=== PATIENT | male | born 1945 | race Caucasian/White ===

== ENCOUNTER → 2018-11-29 11:32 | Outpatient (CLI) | payer MEDICARE, SELFPAY ==
[2018-11-29 12:13] LABS: Add Manual Diff / Slide Review NO; Basophils Absolute Auto 100 /uL (0-100); Basophils Percent Auto 0.8 % (0-2); Eosinophils Absolute Auto 400 /uL (0-450); Eosinophils Percent Auto 6.8 % (2-4); Hematocrit 47.5 % (41-53); Hemoglobin 16.1 g/dL (13.5-17.5); Lymphocytes Absolute Auto 1700 /uL (1100-4500); Mean Corpuscular HGB Conc 33.8 % (30-36); Mean Corpuscular Hemoglobin 32.2 PG (26-34); Mean Corpuscular Volume 95.4 fL (80-100); Monocytes Absolute Auto 500 /uL (0-900); Monocytes Percent Auto 7.4 % (3-14); Neutrophils Absolute Auto 3800 /uL (1500-7000); Platelet Count 313 X10^3/uL (150-400); Red Blood Cell Count 4.98 X10^6/uL (4.5-5.9); Red Cell Distribution Width 13.1 % (11.6-14.8); White Blood Cell Count 6.5 X10^3/uL (4.5-11.0)
[2018-11-29 12:43] LABS: Cholesterol 244 mg/dL (140-199); HDL Cholesterol 71 mg/dL (40-60); LDL Cholesterol Calculated 147 mg/dL (<100); Triglycerides 129 mg/dL (35-150)
[2018-11-29 15:45] LABS: Vitamin D 25 Hydroxy (D3) 30.3 ng/mL (30.0-100.0)
[2018-11-30 13:57] LABS: Rubeola Measles IgG > 300.00 AU/mL (< 25.00)
== END ==
PROVIDERS: PCP Student in an Organized Health Care Education/Training Program; Visit Provider Student in an Organized Health Care Education/Training Program
DX: E55.9 Vitamin D deficiency, unspecified (principal); E78.2 Mixed hyperlipidemia; J45.909 Unspecified asthma, uncomplicated; Z11.59 Encounter for screening for other viral diseases
CPT/HCPCS: 36415; 80061; 82306; 85025; 86765

== ENCOUNTER → 2019-05-03 12:38 | Outpatient (CLI) | payer MEDICARE, SELFPAY ==
--- NOTE | 2019-05-03 13:11 | DI.CT.S_ITS ---
PROCEDURE: CT CHEST WO CON INDICATIONS: chronic bronchitis, former smoker TECHNIQUE: Noncontrast 2.0-2.5 mm thick sections acquired from the pulmonary apices to the posterior costophrenic angles. 7 mm thick coronal and sagittal MIP reformats were then acquired. A low radiation dose technique was utilized. COMPARISON: [facility], , CHEST 1 VIEW, 06/05/2017, 14:14. FINDINGS: Image quality: Diagnostic, given the low radiation dose technique. Lungs and pleura: Moderate to severe upper lobe emphysematous changes. Spiculated biapical pleural plaquing is present. Small focal mixed nodular and fibrotic changes are present at the medial left lung apex and extends to the left suprahilar region along the medial pleural surface. Mild underlying thickening of the medial pleural surface. Central apical left upper lobe lung nodule with spiculations to the superior pleura demonstrates a solid component measuring about 5 mm and measures overall about 9 mm on lung windows (series 3 image 63). No other lung nodules or suspicious masses. No acute airspace opacities. No pleural effusions. Minor subpleural irregularity anteriorly right middle lobe. Mediastinum: Heart size is normal. No pericardial effusion. There are mildly prominent aorticopulmonary and precarinal lymph nodes measuring 9 mm and 10 mm in short axis respectively. Smaller superior mediastinal lymph nodes are present. A no suspicious hilar adenopathy. Thoracic aorta and central pulmonary arteries are normal in size. Esophagus is normal in caliber. No hiatal hernia. Bones and chest wall: No suspicious bony lesions. No vertebral body compression fractures. No axillary or supraclavicular adenopathy by size criteria. Thyroid gland is normal. Abdomen: Visualized upper abdomen solid organs and bowel loops appear normal in the absence of contrast. Incidental not made of a few hepatic cysts. IMPRESSION: 1. 9 mm part solid lung nodule in the left upper lobe with a 5 mm solid component. This is probably benign nodular scarring but continued attention to this area is recommended. 2. Moderate to severe emphysema. 3. Biapical pleural irregularity and left apical medial fibrotic changes. 4. Mild mediastinal adenopathy. This is nonspecific and can be seen in setting of emphysema. LUNG-RADS 3; followup chest CT in 6 months. Dictated by: Lamar Elizalde M.D. on 05/03/2019 at 12:42 Approved by: Lamar Elizalde M.D. on 05/03/2019 at 12:56
== END ==
PROVIDERS: PCP Student in an Organized Health Care Education/Training Program; Visit Provider Student in an Organized Health Care Education/Training Program
DX: J42 Unspecified chronic bronchitis (principal); J43.9 Emphysema, unspecified; R91.1 Solitary pulmonary nodule; R59.0 Localized enlarged lymph nodes; Z87.891 Personal history of nicotine dependence
CPT/HCPCS: 71250

== ENCOUNTER → 2019-11-16 13:01 | Outpatient (CLI) | payer MEDICARE, SELFPAY ==
--- NOTE | 2019-11-16 13:45 | DI.CT.S_ITS ---
PROCEDURE: CT CHEST WO CON INDICATIONS: Spiculated lung nodule in left upper lung TECHNIQUE: Noncontrast 5 mm thick sections acquired from the pulmonary apices to the posterior costophrenic angles. 1 mm lung window, 5 mm thick coronal and sagittal and 7 mm axial MIP reformats were then acquired. For radiation dose reduction, the following was used: automated exposure control, adjustment of mA and/or kV according to patient size. COMPARISON: [facility], CT, CT CHEST WO [facility], 05/03/2019, 12:54. FINDINGS: Image quality: Excellent. Lungs and pleura: Spiculated central left apical lung nodule measuring 9 mm is stable in size and morphology. Pleural thickening in the left lung medial with associated bronchiectasis is also stable in morphology. Findings are superimposed on moderate to severe emphysematous changes without bullous formation or pneumothorax. Biapical pleural plaquing is present. No acute air space opacities. No pleural effusions or pneumothorax. Central and peripheral airways are patent and normal in caliber. Mediastinum: Heart size is normal. No pericardial effusion. Numerous prevascular and precarinal lymph nodes appear stable in size and number. No mediastinal adenopathy by size criteria. Thoracic aorta and central pulmonary arteries are normal in size. Esophagus is normal in caliber. No hiatal hernia. Bones and chest wall: No suspicious bony lesions. No vertebral body compression fractures. No axillary or supraclavicular adenopathy by size criteria. Thyroid gland is normal. Abdomen: Visualized upper abdominal organs demonstrate lobular liver morphology with a few cysts present as before. Upper abdomen is otherwise normal. IMPRESSION: 1. Stable spiculated left apical lung nodule with adjacent medial fibrosis. Continued screening with low-dose chest CT on an annual basis is recommended. 2. Stable mediastinal lymph nodes. 3. Moderate to severe emphysematous changes. Dictated by: Lamar Elizalde M.D. on 11/16/2019 at 15:48 Approved by: Lamar Elizalde M.D. on 11/16/2019 at 16:02
== END ==
PROVIDERS: PCP Student in an Organized Health Care Education/Training Program; Visit Provider Student in an Organized Health Care Education/Training Program
DX: R91.1 Solitary pulmonary nodule (principal); J84.10 Pulmonary fibrosis, unspecified
CPT/HCPCS: 71250

== ENCOUNTER → 2020-11-21 16:12 | Outpatient (CLI) | payer MEDICARE, SELFPAY ==
[2020-11-21] MEDS: COVID-19 VACC #1, MRNA(MOD) 100 MCG/0.5 ML VIAL IM (16:21)
== END ==
PROVIDERS: PCP Student in an Organized Health Care Education/Training Program; Visit Provider Internal Medicine
DX: Z23 Encounter for immunization (principal)
CPT/HCPCS: 0011A; 91301

== ENCOUNTER → 2020-12-18 15:23 | Outpatient (CLI) | payer MEDICARE, SELFPAY ==
[2020-12-18] MEDS: COVID-19 VACC #2, MRNA(MOD) 100 MCG/0.5 ML VIAL IM (15:33)
== END ==
PROVIDERS: PCP Student in an Organized Health Care Education/Training Program; Visit Provider Internal Medicine
DX: Z23 Encounter for immunization (principal)
CPT/HCPCS: 0012A; 91301

== ENCOUNTER → 2021-04-14 16:05 | Outpatient (CLI) | payer MEDICARE, SELFPAY ==
--- NOTE | 2021-04-14 16:07 | DI.RAD.S_ITS ---
PROCEDURE: XR ELBOW LT MIN 3V INDICATIONS: fall, L elbow pain TECHNIQUE: 4 views of the elbow were acquired. COMPARISON: [facility], CR, XR FOREARM LT 2V, 04/14/2021, 16:15. FINDINGS: Bones: Nondisplaced radial neck fracture. No dislocations. No suspicious bony lesions. Soft tissues: No significant elbow joint effusion. No suspicious soft tissue calcifications. IMPRESSION: Radial neck fracture. Dictated by: Jayme Lundberg M.D. on 04/14/2021 at 16:46 Approved by: Jayme Lundberg M.D. on 04/14/2021 at 16:47
--- NOTE | 2021-04-14 16:07 | DI.RAD.S_ITS ---
PROCEDURE: XR FOREARM LT 2V INDICATIONS: fall, L elbow pain TECHNIQUE: 2 views of the forearm were acquired. COMPARISON: [facility], CR, XR ELBOW LT MIN 3V, 04/14/2021, 16:15. FINDINGS: Bones: Radial neck fracture. No significant displacement. No shaft fracture. No dislocations. No suspicious bony lesions. Soft tissues: No suspicious soft tissue calcifications or masses. IMPRESSION: Radial neck fracture. Dictated by: Jayme Lundberg M.D. on 04/14/2021 at 16:44 Approved by: Jayme Lundberg M.D. on 04/14/2021 at 16:46
== END ==
PROVIDERS: PCP Student in an Organized Health Care Education/Training Program; Referring Provider Physician Assistant; Visit Provider Physician Assistant
DX: M25.522 Pain in left elbow (principal); S52.132A Displaced fracture of neck of left radius, initial encounter for closed fracture; W19.XXXA Unspecified fall, initial encounter
CPT/HCPCS: 73080; 73090

== ENCOUNTER 2021-09-15 14:00 | Outpatient (RCR) | payer MEDICARE, SELFPAY | END 2021-09-15 15:19 | LOC: PUL 14:00 | PROVIDERS: PCP Student in an Organized Health Care Education/Training Program; Referring Provider Student in an Organized Health Care Education/Training Program; Visit Provider Student in an Organized Health Care Education/Training Program | DX: J44.9 Chronic obstructive pulmonary disease, unspecified (principal) | CPT/HCPCS: G0424 ==

== ENCOUNTER → 2022-08-24 13:43 | Outpatient (CLI) | payer MEDICARE, SELFPAY ==
--- NOTE | 2022-08-24 | DI.CT.S_ITS ---
PROCEDURE: CT CHEST WO CON INDICATIONS: Solitary pulmonary nodule TECHNIQUE: Noncontrast 2.0-2.5 mm thick sections acquired from the pulmonary apices to the posterior costophrenic angles. 7 mm thick axial MIP and 5 mm coronal and sagittal reformats were then acquired. A low radiation dose technique was utilized. COMPARISON: [facility], CT, CT CHEST WO CON, 11/16/2019, 13:12. FINDINGS: Image quality: Diagnostic, given the low radiation dose technique. Lungs and pleura: There is severe centrilobular emphysema. Apical scarring is redemonstrated at the left upper lobe. Small spiculated nodule associated with the scarring is unchanged from the study dated November 16, 2019. No new pulmonary nodules. No acute airspace opacities. No pleural effusion or pneumothorax. Mediastinum: Heart size is normal. No pericardial effusion. No mediastinal adenopathy by size criteria. Thoracic aorta and central pulmonary arteries are normal in size. Scattered atheromatous calcifications are present within the aortic arch. Esophagus is normal in caliber. No hiatal hernia. Bones and chest wall: No suspicious bony lesions. No vertebral body compression fractures. No axillary or supraclavicular adenopathy by size criteria. Thyroid gland is unremarkable. Abdomen: Visualized upper abdomen solid organs and bowel loops appear normal in the absence of contrast. IMPRESSION: 1. No new pulmonary nodules or suspicious pulmonary lesions. Scarring at the left apex is unchanged from November 16, 2019. 2. Severe pulmonary emphysema redemonstrated. Fleischner Society criteria for SOLID lung nodule followup. Nodule size (mm)Low-risk patientHigh-risk patient<6 (single or multiple)No routine followup.Optional CT at 12 months. 6-8 (single or multiple)CT at 6-12 months, then optional CT at 18-24 mo.CT at 6-12 months, then CT at 18-24 months. >8 (single)CT at 3 months, PET-CT, or biopsy. Same as for low-risk pts. >8 (multiple)CT at 3-6 months, then optional CT at 18-24 mo.CT at 3-6 months, then CT at 18-24 months. Fleischner Society criteria for SUB-SOLID lung nodule followup. Solitary pure ground-glass nodules<6 mm (ground glass or part solid)No followup needed. 6 mm or larger (ground glass)CT at 6-12 months to confirm persistence, then CT every 2 years until 5 years.6 mm or larger (part solid)CT at 3-6 months to confirm persistence, then annual CT until 5 years if unchanged and solid component remains <6 mm. Multiple sub-solid nodules<6 mmCT at 3-6 months, then CT consider at 2 & 4 years for high risk patients. [address] at 3-6 months. Subsequent management based on most suspicious lesions. Recommendations do not apply to lung cancer screening, patients with immunosuppression, or patients with known primary cancer. Dictated by: Caprice Qureshi M.D. on 08/24/2022 at 16:15 Approved by: Caprice Qureshi M.D. on 08/24/2022 at 16:20
== END ==
PROVIDERS: PCP Student in an Organized Health Care Education/Training Program; Referring Provider Student in an Organized Health Care Education/Training Program; Visit Provider Student in an Organized Health Care Education/Training Program
DX: R91.1 Solitary pulmonary nodule (principal); J43.2 Centrilobular emphysema
CPT/HCPCS: 71250

== ENCOUNTER 2022-09-15 05:10 | Emergency (ER) | payer MEDICARE, SELFPAY ==
[2022-09-15 05:15] VITALS: BP 151/67; PULSE 85; RESP 20; TEMP 37.8; O2SAT 97; BMI 23.7
--- NOTE | 2022-09-15 05:24 | ED.SOB ---
HPI - SOB/Dyspnea General Chief Complaint: Shortness of Breath/Dyspnea Stated Complaint: cant breath Time Seen by Provider: 09/15/22 05:17 History of Present Illness HPI Narrative: 76-year-old male former smoker with history of COPD presents with his daughter and a chief complaint of a few days of increasing shortness of breath, cough, fever and chills. The family he is had multiple viral illnesses including RSV and parainfluenza. He had recently been seen by his primary care provider and put on a Z-Aidan and a short course of prednisone and thinks he got a bit better but symptoms have been worsening again over the past few days. Exertion makes him more short of breath, deep breath makes him more short of breath and forces him to cough. He occasionally brings up off colored sputum. He has no headache or blurred vision and denies any runny nose, sore throat. He has had no nausea, vomiting or diarrhea Related Data Home Medications Medication Instructions Recorded Confirmed budesonide 0.25 mg/2 mL suspension 0.6 mg irrigation Q DAY ##0 11/29/18 12/25/21 for nebulization famotidine 20 mg tablet 20 mg PO DAILY 05/13/21 12/25/21 (Zantac-360 (famotidine)) Previous Rx's Medication Instructions Recorded fluticasone propionate 115 2 puff inhalation BID #36 grams 12/25/21 mcg-salmeterol 21 mcg/actuation HFA inhaler (Advair HFA) albuterol sulfate 90 mcg/actuation 2 puff inhalation QID PRN chronic 01/29/22 aerosol inhaler (Ventolin HFA) bronchitis #18 grams alprazolam 0.5 mg tablet 0.25 - 0.5 mg PO DAILY PRN anxiety 08/05/22 #10 tabs azithromycin 250 mg tablet See Rx Instructions PO .COMPLEX #6 08/17/22 tabs benzonatate 200 mg capsule 200 mg PO BID PRN cough #20 caps 09/15/22 oseltamivir 75 mg capsule (Tamiflu) 75 mg PO BID 5 days #10 caps 09/15/22 prednisone 10 mg tablet See Rx Instructions .Route 09/15/22 .COMPLEX #30 tabs Allergies Allergy/AdvReac Type Severity Reaction Status Date / Time Penicillins Allergy Severe HIVES, Unverified 12/25/21 15:14 TROUBLE BREATHING Review of Systems Review of Systems Narrative: GENERAL: See HPI HEENT: Denies sinus pain, ear pain, sore throat, difficulty swallowing, dizziness. RESPIRATORY: See HPI CARDIOVASCULAR: Denies chest pain, palpitations, orthopnea, edema, GASTROINTESTINAL: Denies nausea, vomiting, abdominal pain, diarrhea, constipation, melena. : Denies dysuria, frequency, incontinence, hematuria, urinary retention. MUSCULOSKELETAL: denies weakness, joint pain, or bony pain SKIN: Denies rash, skin lesions, or other NEUROLOGIC: Denies weakness, headache, numbness, change in speech, confusion, seizures, incoordination. PSYCHIATRIC: No concerning psychosocial issues. 12 point review of systems is negative except for those stated above Patient History Medical History Benign non-nodular prostatic hyperplasia with lower urinary tract symptoms (10/11/15) Chicken pox Chronic bronchitis (~1976) Colon polyps Dermatitis Elevated PSA (~1994) History of nasal polyp (08/17/17) Hyperlipidemia Moderate persistent asthma without complication (10/11/15) Mumps Rubella Surgical History Anesthesia History of appendectomy (~1965) History of knee surgery (~2007) History of sinus surgery (~2007) History of tonsillectomy (~1951) Hx of inguinal hernia surgery (~03/31/12) S/P TURP (~2015) Family History Father No problems noted. Mother Heart disease Brother Heart disease Stroke Sister Cancer Mental health problem Grandmother No problems noted. Grandfather No problems noted. Grandmother No problems noted. Social History Smoking Status: Former smoker Smoking Status: Former smoker Exam Narrative Exam Narrative: GENERAL: [76] year old patient appears stated age. Well-developed patient, in mild distress. HEAD: Atraumatic. Normocephalic. EYES: Pupils equal round and reactive. Extraocular motions intact. No scleral icterus. No injection or drainage. ENT: Nose without bleeding, purulent drainage. Throat without erythema, tonsillar hypertrophy or exudate. Airway patent. NECK: Trachea midline. Non tender CARDIOVASCULAR: Regular rate and rhythm without murmurs, gallops, or rubs. RESPIRATORY: Decreased breath sounds throughout prolonged expiratory phase and faint and expiratory wheeze, perhaps some faint crackles, deep breath illicits cough GASTROINTESTINAL: Abdomen soft, non-tender, nondistended. EXTREMITIES: No edema or joint tenderness. BACK: Nontender without deformity or crepitance. No flank tenderness. NEURO: AOx3. SKIN: No rash or erythema of visible areas Initial Vital Signs Initial Vital Signs: Vital Signs Temperature 100.1 F H 09/15/22 05:15 Pulse Rate 85 09/15/22 05:15 Respiratory Rate 20 09/15/22 05:15 Blood Pressure 151/67 H 09/15/22 05:15 Pulse Oximetry 97 09/15/22 05:15 Oxygen Delivery Method 09/15/22 05:15 Course Orders Ordered: Discontinued Medications Albuterol/Ipratropium (Albuterol/Ipratropium 3 Ml Ampul) 3 ml INH NOW ONE Stop: 09/15/22 05:27 Last Admin: 09/15/22 05:34 Dose: 3 ml Documented By: PILI Sodium Chloride (Normal Saline 0.9%) 500 mls @ 1,000 mls/hr IV BOLUS ONE Stop: 09/15/22 05:53 Last Infusion: 09/15/22 06:57 Dose: 0 mls/hr Documented By: Admin: 09/15/22 06:00 Dose: 1,000 mls/hr Documented By: JULIETH Methylprednisolone (Methylprednisolone 125 Mg/2 Ml Vial) 125 mg IV NOW ONE Stop: 09/15/22 05:25 Last Admin: 09/15/22 05:41 Dose: 125 mg Documented By: TONY Vital Signs Vital signs: Vital Signs - 8 hr 09/15/22 05:15 Temperature 100.1 F H Pulse Rate 85 Respiratory Rate 20 Blood Pressure 151/67 H Pulse Oximetry 97 Oxygen Delivery Method Room Air MDM - SOB/Dyspnea Lab Data Result diagrams: 09/15/22 05:36 09/15/22 05:36 Labs: Lab Results 09/15/22 09/15/22 09/15/22 Range/Units 05:34 05:36 05:36 WBC 7.9 (4.5-11.0) X10^3/uL RBC 4.52 (4.5-5.9) X10^6/uL Hgb 14.4 (13.5-17.5) g/dL Hct 42.3 (41-53) % MCV 93.6 (80-100) fL MCH 31.8 (26-34) PG MCHC 34.0 (30-36) % RDW 13.4 (11.6-14.8) % Plt Count 316 (150-400) X10^3/uL Neut % (Auto) 80.7 H (50-75) % Lymph % (Auto) 7.3 L (25-40) % [place] % (Auto) 8.3 (3-14) % Eos % (Auto) 2.6 (2-4) % Baso % (Auto) 1.1 (0-2) % Neut # (Auto) 6300 (6317-2409) /uL Lymph # (Auto) 600 L (9079-8340) /uL [place] # (Auto) 700 (0-900) /uL Eos # (Auto) 200 (0-450) /uL Baso # (Auto) 100 (0-100) /uL Sodium (137-145) mmol/L Potassium (3.4-5.1) mmol/L Chloride (98-107) mmol/L Carbon Dioxide (22-32) mmol/L BUN (9-20) mg/dL Creatinine (0.66-1.25) mg/dL Estimated GFR (>60) mL/min BUN/Creatinine Ratio (6-22) Glucose (80-110) mg/dL Calcium (8.4-10.2) mg/dL Total Bilirubin (0.2-1.3) mg/dL AST (17-59) IU/L ALT (<50) IU/L Alkaline Phosphatase (38-126) U/L NT-Pro-B Natriuret Pep (<450) pg/mL Total Protein (6.3-8.2) g/dL Albumin (3.5-5.0) g/dL Globulin (1.7-4.1) g/dL Albumin/Globulin Ratio (1.0-2.8) Procalcitonin 0.14 (<0.5) ng/mL SARS-CoV-2 (PCR) Negative (Negative) Influenza A (RT-PCR) Flu a positive H (NEGATIVE) Influenza B (RT-PCR) Flu b negative (NEGATIVE) RSV (PCR) Negative (Negative) 09/15/22 Range/Units 05:36 WBC (4.5-11.0) X10^3/uL RBC (4.5-5.9) X10^6/uL Hgb (13.5-17.5) g/dL Hct (41-53) % MCV (80-100) fL MCH (26-34) PG MCHC (30-36) % RDW (11.6-14.8) % Plt Count (150-400) X10^3/uL Neut % (Auto) (50-75) % Lymph % (Auto) (25-40) % [place] % (Auto) (3-14) % Eos % (Auto) (2-4) % Baso % (Auto) (0-2) % Neut # (Auto) (6512-3644) /uL Lymph # (Auto) (2624-6693) /uL [place] # (Auto) (0-900) /uL Eos # (Auto) (0-450) /uL Baso # (Auto) (0-100) /uL Sodium 136 L (137-145) mmol/L Potassium 5.0 (3.4-5.1) mmol/L Chloride 101 (98-107) mmol/L Carbon Dioxide 27 (22-32) mmol/L BUN 13 (9-20) mg/dL Creatinine 0.80 (0.66-1.25) mg/dL Estimated GFR > 60 (>60) mL/min BUN/Creatinine Ratio 16.3 (6-22) Glucose 109 (80-110) mg/dL Calcium 9.2 (8.4-10.2) mg/dL Total Bilirubin 0.6 (0.2-1.3) mg/dL AST 34 (17-59) IU/L ALT 27 (<50) IU/L Alkaline Phosphatase 57 (38-126) U/L NT-Pro-B Natriuret Pep 282 (<450) pg/mL Total Protein 8.2 (6.3-8.2) g/dL Albumin 4.4 (3.5-5.0) g/dL Globulin 3.8 (1.7-4.1) g/dL Albumin/Globulin Ratio 1.2 (1.0-2.8) Procalcitonin (<0.5) ng/mL SARS-CoV-2 (PCR) (Negative) Influenza A (RT-PCR) (NEGATIVE) Influenza B (RT-PCR) (NEGATIVE) RSV (PCR) (Negative) Imaging Data Chest x-ray: Radiologist's Impression: NAP Discharge Plan Departure Patient Disposition: Home Clinical Impression: Influenza A Instructions: DI for Influenza -- Adult Activity Restrictions/Additional Instructions: *You have been diagnosed with [influenza a] *What to do: *Please continue to take your regular medications as directed. [x ] New medication prescriptions sent to your pharmacy: [ [facility]] [ ] New medication written as a paper prescription [ ] No new medications given *Please follow up with your primary care provider in 2-3 days, call for an appointment. Let them know you were seen in the Emergency Department and that we ask that you be seen in follow up. We will electronically transmit a record of today's note if your PCP is in our system *If you do not have a primary care provider please contact the [facility] Resource line at [phone]. They will ask some questions about your medical history and help get you set up with a doctor in the community. *Return to Emergency Department if you should have any new, worsening or concerning symptoms, such as [fever greater than 101 F, shaking chills, worsening pain, persistent vomiting or other bothersome symptoms] Prescriptions: New prednisone 10 mg tablet See Rx Instructions .ROUTE .COMPLEX Qty: 30 0RF Rx Instructions: Day 1,2,3: 40mg PO Daily Day 4,5,6: 30mg PO Daily Day 7,8,9: 20mg PO Daily Day 10,11,12: 10mg PO Daily #30 oseltamivir [Tamiflu] 75 mg capsule 75 mg PO BID 5 Days Qty: 10 0RF benzonatate 200 mg capsule 200 mg PO BID PRN (Reason: cough) Qty: 20 0RF No Action Ventolin HFA 90 mcg/actuation HFA aerosol inhaler 2 puff INHALATION QID PRN (Reason: chronic bronchitis) Qty: 18 11RF alprazolam 0.5 mg tablet 0.25 - 0.5 mg PO DAILY PRN (Reason: anxiety) Qty: 10 0RF azithromycin 250 mg tablet See Rx Instructions PO .COMPLEX Qty: 6 0RF Rx Instructions: For 250 mg dose pack: take 500 mg today (day 1), then 250 mg for 4 days (days 2-5) PO famotidine [Zantac-360 (famotidine)] 20 mg tablet 20 mg PO DAILY budesonide 0.25 mg/2 mL suspension for nebulization 0.6 mg IRR Q DAY Qty: 0 Label Comments: Sinus rinse Advair HFA 115-21 mcg/actuation HFA aerosol inhaler 2 puff INHALATION BID Qty: 36 3RF Referrals: Juanito Tyler MD [Primary Care Provider] - Visit Report Forms: Patient Portal/API
--- NOTE | 2022-09-15 05:25 | DI.RAD.S_ITS ---
PROCEDURE: XR CHEST 2V INDICATIONS: SOB TECHNIQUE: 2 views of the chest were acquired. COMPARISON: [facility], CT, CT CHEST WO CON, 08/24/2022, 13:48. [facility], CR, CHEST 1 VIEW, 06/05/2017, 14:14. FINDINGS: Surgical changes and devices: None. Lungs and pleura: Hyperinflation suggesting COPD. Lungs are clear. No pleural effusions or pneumothorax. Mediastinum: Mediastinal contours are normal. Heart size is normal. Bones and chest wall: No suspicious bony abnormalities. Soft tissues appear unremarkable. IMPRESSION: COPD. No acute cardiopulmonary disease. No significant discrepancy with the maintenance supervisor 2nd shift radiology preliminary report. Dictated by: Rosa Boyer M.D. on 09/15/2022 at 8:38 Approved by: Rosa Boyer M.D. on 09/15/2022 at 8:39
[2022-09-15] MEDS: ALBUTEROL/IPRATROPIUM 3 ML AMPUL INH (05:34)
[2022-09-15] MEDS: methylPREDNISolone 125 MG/2 ML VIAL IV (05:41)
[2022-09-15 05:52] LABS: Add Manual Diff / Slide Review NO; Basophils Absolute Auto 100 /uL (0-100); Basophils Percent Auto 1.1 % (0-2); Eosinophils Absolute Auto 200 /uL (0-450); Eosinophils Percent Auto 2.6 % (2-4); Hematocrit 42.3 % (41-53); Hemoglobin 14.4 g/dL (13.5-17.5); Lymphocytes Absolute Auto 600 /uL (1100-4500); Lymphocytes Percent Auto 7.3 % (25-40); Mean Corpuscular Hemoglobin 31.8 PG (26-34); Mean Corpuscular Volume 93.6 fL (80-100); Monocytes Absolute Auto 700 /uL (0-900); Monocytes Percent Auto 8.3 % (3-14); Neutrophils Absolute Auto 6300 /uL (1500-7000); Neutrophils Percent Auto 80.7 % (50-75); Platelet Count 316 X10^3/uL (150-400); Red Blood Cell Count 4.52 X10^6/uL (4.5-5.9); Red Cell Distribution Width 13.4 % (11.6-14.8); White Blood Cell Count 7.9 X10^3/uL (4.5-11.0)
[2022-09-15] MEDS: SODIUM CHLORIDE 0.9% 500 ML 1000 ML IV (06:00)
[2022-09-15 06:01] LABS: Alanine Aminotransferase 27 IU/L (<50); Albumin 4.4 g/dL (3.5-5.0); Albumin Globulin Ratio 1.2 (1.0-2.8); Alkaline Phosphatase 57 U/L (38-126); Aspartate Aminotransferase 34 IU/L (17-59); BUN Creatinine Ratio 16.3 (6-22); Bilirubin Total 0.6 mg/dL (0.2-1.3); Blood Urea Nitrogen 13 mg/dL (9-20); Calcium 9.2 mg/dL (8.4-10.2); Carbon Dioxide 27 mmol/L (22-32); Chloride 101 mmol/L (98-107); Estimated Glomerular Filt Rate > 60 mL/min (>60); Globulin 3.8 g/dL (1.7-4.1); Glucose 109 mg/dL (80-110); Sodium 136 mmol/L (137-145); Total Protein 8.2 g/dL (6.3-8.2)
[2022-09-15 06:10] LABS: NT-proBNP (BNP-Adult 18+) 282 pg/mL (<450)
[2022-09-15 06:19] LABS: Procalcitonin 0.14 ng/mL (<0.5)
[2022-09-15 06:32] LABS: HEMOLYSIS 101 (0-50)
[2022-09-15 06:37] LABS: Influenza A - CEPHEID Flu A POSITIVE (NEGATIVE); Influenza B - CEPHEID Flu B NEGATIVE (NEGATIVE); Respiratory Syncytial Virus Negative (Negative)
[2022-09-15 06:42] LABS: COVID-19 CEPHEID 4-PLEX PCR Negative (Negative)
[2022-09-15 08:17] VITALS: BP 137/65; PULSE 82; RESP 19; O2SAT 95
== END 2022-09-15 08:17 | disposition home or self-care (01) ==
PROVIDERS: Emergency Provider Emergency Medicine; PCP Student in an Organized Health Care Education/Training Program
DX: J10.1 Influenza due to other identified influenza virus with other respiratory manifestations (principal); Z20.822 Contact with and (suspected) exposure to COVID-19
CPT/HCPCS: 0241U; 36415; 71046; 80053; 83880; 84145; 85025; 96361; 96374; 99284; J2930

== ENCOUNTER → 2023-07-15 12:06 | Outpatient (CLI) | payer MEDICARE, SELFPAY ==
[2023-07-15 13:17] LABS: Alanine Aminotransferase 26 IU/L (<50); Albumin 4.5 g/dL (3.5-5.0); Albumin Globulin Ratio 1.4 (1.0-2.8); Alkaline Phosphatase 58 U/L (38-126); Aspartate Aminotransferase 29 IU/L (17-59); Bilirubin Total 0.6 mg/dL (0.2-1.3); Blood Urea Nitrogen 16 mg/dL (9-20); Calcium 9.8 mg/dL (8.4-10.2); Carbon Dioxide 27 mmol/L (22-32); Chloride 101 mmol/L (98-107); Cholesterol 230 mg/dL (140-199); Estimated Glomerular Filt Rate > 60 mL/min (>60); Globulin 3.2 g/dL (1.7-4.1); Glucose 94 mg/dL (80-110); HDL Cholesterol 69 mg/dL (40-60); HEMOLYSIS < 15 (0-50); LDL Cholesterol Calculated 135 mg/dL (<100); Sodium 137 mmol/L (137-145); Total Protein 7.7 g/dL (6.3-8.2); Triglycerides 131 mg/dL (35-150)
== END ==
PROVIDERS: PCP Family Medicine; Referring Provider Family Medicine; Visit Provider Family Medicine
DX: E78.2 Mixed hyperlipidemia (principal); K21.9 Gastro-esophageal reflux disease without esophagitis
CPT/HCPCS: 36415; 80053; 80061

== ENCOUNTER → 2023-08-20 14:29 | Outpatient (CLI) | payer MEDICARE, SELFPAY ==
--- NOTE | 2023-08-20 14:31 | DI.CT.S_ITS ---
PROCEDURE: CT LUNG LOW DOSE SCREENING INDICATIONS: 1 year f/u TECHNIQUE: Noncontrast 2.0-2.5 mm thick sections acquired from the pulmonary apices to the posterior costophrenic angles. 7 mm thick axial MIP, and 5 mm coronal and sagittal reformats were then acquired. A low radiation dose technique was utilized. COMPARISON: [facility], CT, CT LOW DOSE LUNG CA SCREENING, 01/02/2021, 10:22. FINDINGS: Image quality: Diagnostic, given the low radiation dose technique. Lungs and pleura: Severe centrilobular emphysema is redemonstrated similar to the study dated January 02, 2021. Scarring is present within the bilateral apices, as before. Mediastinum: Heart size is normal. No pericardial effusion. No mediastinal adenopathy by size criteria. Thoracic aorta and central pulmonary arteries are normal in size. Scattered atheromatous calcifications are present within the aortic arch. Esophagus is normal in caliber. No hiatal hernia. Bones and chest wall: No suspicious bony lesions. No vertebral body compression fractures. No axillary or supraclavicular adenopathy by size criteria. Thyroid gland is unremarkable. Abdomen: Visualized upper abdomen solid organs and bowel loops appear normal in the absence of contrast. IMPRESSION: 1. Severe emphysematous change and apical scarring. No new pulmonary nodules or acute airspace opacities. LUNG-RADS 1; annual CT surveillance recommended in high-risk patients. Dictated by: Caprice Qureshi M.D. on 08/20/2023 at 16:06 Approved by: Caprice Qureshi M.D. on 08/20/2023 at 16:10
== END ==
PROVIDERS: PCP Family Medicine; Referring Provider Family Medicine; Visit Provider Family Medicine
DX: Z12.2 Encounter for screening for malignant neoplasm of respiratory organs (principal); Z87.891 Personal history of nicotine dependence; J43.9 Emphysema, unspecified; R91.1 Solitary pulmonary nodule; K21.9 Gastro-esophageal reflux disease without esophagitis; E78.2 Mixed hyperlipidemia
CPT/HCPCS: 71271

== ENCOUNTER → 2024-01-07 10:08 | Outpatient (CLI) | payer MEDICARE, SELFPAY ==
[2024-01-07 11:50] LABS: Alanine Aminotransferase 24 IU/L (<50); Albumin Globulin Ratio 1.3 (1.0-2.8); Alkaline Phosphatase 54 U/L (38-126); Aspartate Aminotransferase 25 IU/L (17-59); BUN Creatinine Ratio 12.4 (6-22); Bilirubin Total 0.5 mg/dL (0.2-1.3); Blood Urea Nitrogen 11 mg/dL (9-20); Calcium 9.4 mg/dL (8.4-10.2); Carbon Dioxide 27 mmol/L (22-32); Chloride 106 mmol/L (98-107); Cholesterol 172 mg/dL (140-199); Estimated Glomerular Filt Rate > 60 mL/min (>60); Glucose 84 mg/dL (80-110); HDL Cholesterol 65 mg/dL (40-60); HEMOLYSIS < 15 (0-50); LDL Cholesterol Calculated 86 mg/dL (<100); Sodium 138 mmol/L (137-145); Triglycerides 105 mg/dL (35-150)
[2024-01-07 12:15] LABS: Prostate Specific Antigen Scrn 2.23 ng/mL (0.1-4.0)
== END ==
PROVIDERS: PCP Family Medicine; Referring Provider Family Medicine; Visit Provider Family Medicine
DX: E78.2 Mixed hyperlipidemia (principal); Z12.5 Encounter for screening for malignant neoplasm of prostate; F41.8 Other specified anxiety disorders
CPT/HCPCS: 36415; 80053; 80061; G0103

== ENCOUNTER 2024-04-13 12:03 | Day surgery (SDC) | payer MEDICARE, SELFPAY ==
--- NOTE | 2024-04-13 | PATH_ITS ---
[facility] Accession Number: [id number] No. of containers..02 Tissue . 01 Material submitted: . PART A: colon - ASCENDING POLYP PART B: colon - DESCENDING POLYP . 01 Diagnosis: Part A: ASCENDING POLYP: Tubular adenoma. . Part B: DESCENDING POLYP: Tubular adenoma. [facility] 04/19/2024 1534 Local . 01 Electronically signed: . Douglas Bach MD, Pathologist NPI- [id number] . 01 Gross description: . A. Received in formalin with two patient identifiers and ascending polyp is a single vargas soft tissue fragment, 1.3 cm in greatest dimension. Submitted in A1. . B. Received in formalin with two patient identifiers and descending polyp, are two vargas soft tissue fragments, 0.2 to 0.3 cm in greatest dimension. Submitted in B1. ([id number]) /MRV 04/19/2024 1534 Local . 01 Pathologist provided ICD-10: D12.2, D12.4 . 01 CPT . 970485, [id number] Specimen Comment: A courtesy copy of this report has been sent to [phone] Performed at: [address] [address], [place], [place] [id number] MD Douglas Bach MD Phone: [phone]
[2024-04-13 12:30] VITALS: BP 144/84; PULSE 62; RESP 20; TEMP 37.2; O2SAT 98
[2024-04-13] MEDS: LACTATED RINGERS 1,000 ML 42 ML IV (12:43)
--- NOTE | 2024-04-13 13:02 | PM.HP.1 ---
History of Present Illness History of Present Illness Date Patient Seen: 04/13/24 Time Patient Seen: 13:02 Chief complaint: Screening Colonoscopy Narrative: Jaron is a 78-year-old man who is here for colonoscopy. His last was about 10 years ago and was normal. No family history of colon cancer. [facility] Medical History Near syncope Unintended weight loss Borderline hyperlipidemia History of colon polyps Medicare annual wellness visit, subsequent Encounter for well adult exam without abnormal findings Chronic sinusitis Preventative health care Insomnia Chronic bronchitis (~1976) Rubella Mumps Chicken pox Elevated PSA (~1994) Dermatitis Colon polyps Hyperlipidemia History of nasal polyp (08/17/17) Moderate persistent asthma without complication (10/11/15) Benign non-nodular prostatic hyperplasia with lower urinary tract symptoms (10/11/15) Surgical History Anesthesia S/P TURP (~2015) History of sinus surgery (~2007) History of knee surgery (~2007) History of appendectomy (~1965) History of tonsillectomy (~1951) Hx of inguinal hernia surgery (~03/31/12) Family History Father No problems noted. Mother Heart disease Brother Heart disease Stroke Sister Cancer Mental health problem Grandmother No problems noted. Grandfather No problems noted. Grandmother No problems noted. Social History Smoking Status: Former smoker Meds Home Medications and Allergies Home Medications Medication Instructions Recorded Confirmed Type alprazolam 0.25 mg tablet 0.25 - 0.5 mg (1 - 2 x 0.25 mg) PO 10/28/23 03/17/24 Rx DAILY PRN anxiety or insomnia #30 tabs albuterol sulfate 90 mcg/actuation 2 puff inhalation QID PRN chronic 01/04/24 04/13/24 Rx aerosol inhaler (Ventolin HFA) bronchitis #18 grams fluticasone propionate 115 2 puff inhalation BID #36 grams 01/04/24 04/13/24 Rx mcg-salmeterol 21 mcg/actuation HFA inhaler (Advair HFA) budesonide 0.25 mg/2 mL suspension 0.6 mg (4.8 mL) irrigation Q DAY 02/14/24 04/13/24 Rx for nebulization #180 mL Allergies Allergy/AdvReac Type Severity Reaction Status Date / Time Penicillins Allergy Severe HIVES, Verified 04/13/24 12:28 TROUBLE BREATHING Exam Vital Signs (past 8 hours): - 04/13/24 12:30 Temperature 98.9 F Pulse Rate 62 Respiratory Rate 20 Blood Pressure 144/84 H Pulse Oximetry 98 Oxygen Delivery Method Room Air Oxygen Delivery Method Room Air Const General: healthy appearing Resp Effort & Inspection: normal respiratory effort Assessment & Plan Assessment and plan (1) Colon cancer screening: Status: Acute Plan We reviewed the risks and benefits of colonoscopy for colon cancer screening and he would like to proceed.
--- NOTE | 2024-04-13 14:01 | PM.OP.COLON ---
Operative Date/Time/Diagnoses Date of procedure: 04/13/24 Time of procedure: 14:01 Pre-op diagnosis: Colon cancer screening Post-op diagnosis: same Procedure & Clinicians Study performed: Colonoscopy Same procedure as scheduled: Yes Surgeon: Bassam Deal Procedure Notes Procedure in detail: Surgeon: Bassam Deal MD Anesthesia: Eva Duran CRNA Procedure: The patient was brought to the endoscopy suite, placed in left lateral decubitus position. The patient was connected to monitoring devices. A time-out was performed. Sedation was administered. Once the patient was adequately sedated, a digital rectal exam was performed and was normal. The scope was then inserted and advanced to the cecum where the appendiceal orifice was identified and photographed. The scope was then slowly withdrawn over greater than 6 minutes. The mucosa was thoroughly inspected. There was a 7 mm polyp in the ascending colon removed with a cold snare. There was a 7 mm polyp in the descending colon removed with a cold snare. There was moderate diverticulosis greatest in the sigmoid colon. The scope was retroflexed in the rectum. No other abnormalities were seen. The scope was straightened and removed. The patient was awakened and brought to recovery. Scope withdrawal time: 10 minutes Sedation time: 20 minutes EBL: 2 mL Findings: 7 mm polyps in the ascending and descending colon and sigmoid colon diverticulosis Post-procedure Disposition: PACU
[2024-04-13 14:02] VITALS: BP 119/69; PULSE 73; RESP 14; TEMP 36.7; O2SAT 98
[2024-04-13 14:07] VITALS: BP 132/75; PULSE 73; RESP 22; O2SAT 98
[2024-04-13 14:16] VITALS: BP 130/72; PULSE 68; RESP 20; O2SAT 98
== END 2024-04-13 14:26 | disposition home or self-care (01) ==
PROVIDERS: PCP Family Medicine; Referring Provider Surgery; Visit Provider Surgery
PROC: 0DJD8ZZ Inspection of Lower Intestinal Tract, Via Natural or Artificial Opening Endoscopic (ICD-10-PCS; CPT 45378; principal; 2024-04-13 13:30)
DX: Z12.11 Encounter for screening for malignant neoplasm of colon (principal); K57.30 Diverticulosis of large intestine without perforation or abscess without bleeding; D12.2 Benign neoplasm of ascending colon; D12.4 Benign neoplasm of descending colon
CPT/HCPCS: 45385; J2704

== ENCOUNTER → 2024-04-24 15:36 | Outpatient (CLI) | payer MEDICARE, SELFPAY ==
--- NOTE | 2024-04-24 15:36 | DI.ECHO.S_ITS ---
[place] [facility]---------+ [facility] : : [address] : : [place] : : [id number] : : Phone: [phone] Echocardiogram Report + + :Name: DAGMAR MICHELLE Study Date: 04/24/2024 Height: 69 in : :[facility] ReadingLocation: Weight: 160 lb : : Gender: Male BSA: 1.9 m2 : :: 1945 Age: 78 yrs BP: 162/88 mmHg: :Reason For Study: NEAR SYNCOPE : :Ordering Physician: KEVIN, : :MELANIE Performed By: [place] : :Referring: MELANIE BROWN : + + Interpretation Summary Normal left ventricle size with ejection fraction 60-65%. No significant valvular abnormality. Comparison is made with the echocardiogram of 03/26/2015, no significant change. Procedure: A two-dimensional transthoracic echocardiogram with color flow and Doppler was performed. The study quality was technically adequate. Comparison is made with the echocardiogram of 03/26/2015. The patient was in sinus rhythm with heart rates between 57-71 bpm during the exam. Left Ventricle: The left ventricle is normal in size and wall thickness. The ejection fraction is estimated to be 60-65%. There are no focal wall motion abnormalities. Diastolic parameters suggest probable normal left ventricular diastolic function and normal filling pressures. Right Ventricle: The right ventricle is normal in size and function. Atria: The left atrial size is normal. Right atrial size is normal. The interatrial septum grossly appears intact with no obvious evidence for an atrial septal defect. Mitral Valve: The mitral valve is normal. There is no mitral valve stenosis. There is no mitral regurgitation noted. Aortic Valve: The aortic valve is grossly normal. There is no aortic valve stenosis. No aortic regurgitation is present. Tricuspid Valve: The tricuspid valve is normal. There is no tricuspid stenosis. No tricuspid regurgitation. Pulmonic Valve: The pulmonic valve is not well visualized. There is no pulmonic valvular stenosis. There is no pulmonic valvular regurgitation. Great Vessels: The aortic root is normal size. The ascending aorta could not be visualized. The IVC is of normal diameter and collapses greater than 50% with a sniff. This suggests a low right atrial pressure of 3 mm Hg. Pericardium/ Pleura There is no pericardial effusion. There is no pleural effusion. MMode/2D Measurements & Calculations LVIDd: 4.3 cm LVOT diam: 2.3 cm LVIDs: 2.9 cm Ao root diam: 3.7 cm FS: 33.1 % IVSd: 0.91 cm LVPWd: 0.98 cm LV meeks. diameter/BSA (cm/m^2): 2.3 LV sys. diameter/BSA (cm/m^2): 1.5 LA A2 area: 19.1 cm2 RA long axis: 4.6 cm LA A4 area: 17.7 cm2 RA area: 15.3 cm2 LA length (vol): 5.1 cm RA vol: 43.5 ml LA vol: 56.2 ml RA : 23.2 ml/m2 LA vol index: 29.9 ml/m2 IVC diam: 1.5 cm RVD1 (basal): 3.1 cm RVD2 (mid): 2.8 cm TAPSE: 2.7 cm Doppler Measurements & Calculations Ao V2 max: 147.9 cm/sec LVOT Max Morgan: 95.1 cm/sec Ao V2 mean: 87.0 cm/sec LV V1 max P.6 mmHg Ao max P.8 mmHg LV V1 VTI: 27.2 cm Ao mean P.6 mmHg ROSITA(I,D): 3.9 cm2 Ao V2 VTI: 28.5 cm ROSITA(V,D): 2.6 cm2 sev ratio: 0.95 ROSITA indexed to BSA (cm^2/m^2): 2.1 MV E max morgan: 72.5 cm/sec PA V2 max: 106.9 cm/sec MV A max morgan: 55.4 cm/sec PA V2 mean: 81.2 cm/sec MV E/A: 1.3 PA mean P.8 mmHg Med Peak E' Morgan: 9.5 cm/sec PA pr(Accel): 1.9 mmHg E/E' med: 7.6 Lat Peak E' Morgan: 8.7 cm/sec E/E' lat: 8.3 E/e' average: 8.0 MV dec time: 0.28 sec SV(LVOT): 110.9 ml Electronically signed by: Edwar Hernandez on Reading Physician:04/25/2024 04:06 PM
== END ==
PROVIDERS: PCP Family Medicine; Referring Provider Family Medicine; Visit Provider Family Medicine
DX: R55 Syncope and collapse (principal)
CPT/HCPCS: 93306

== ENCOUNTER → 2024-09-05 15:07 | Outpatient (CLI) | payer MEDICARE, SELFPAY ==
--- NOTE | 2024-09-05 15:08 | DI.CT.S_ITS ---
PROCEDURE: CT LUNG LOW DOSE SCREENING INDICATIONS: screening for lung cancer 1 year f/u TECHNIQUE: Noncontrast 2.0-2.5 mm thick sections acquired from the pulmonary apices to the posterior costophrenic angles. 7 mm thick axial MIP, and 5 mm coronal and sagittal reformats were then acquired. For radiation dose reduction, the following was used: automated exposure control, adjustment of mA and/or kV according to patient size. COMPARISON: [facility], CT, CT LUNG LOW DOSE SCREENING, 08/20/2023, 14:58. FINDINGS: Image quality: Diagnostic. Lower Neck: No enlarged lymph nodes. Thyroid: No thyroid nodules which require sonographic follow up, per consensus guidelines. Axillae: No enlarged lymph nodes. Chest Wall: Unremarkable. Bones: Unremarkable. Lungs and Pleura: No pneumothorax or pleural effusions. No consolidation or suspicious nodules. Emphysematous changes with left upper lobe scarring. Heart: Heart size is normal. No pericardial effusion. Thoracic Vessels: The aorta and pulmonary arteries demonstrate normal size. Mediastinum and Keisha: No enlarged lymph nodes. Esophagus: No wall thickening. Mild hiatal hernia. Upper Abdomen: Unchanged scattered hepatic cysts. Otherwise, visualized upper abdomen solid organs and bowel loops appear normal. IMPRESSION: No suspicious pulmonary nodules. LUNG-RADS 1; continued annual screening, if eligible. Clinically Significant Non-pulmonary Findings: Emphysematous change. Dictated by: Ce Laureano M.D. on 09/05/2024 at 20:51 Approved by: Ce Laureano M.D. on 09/05/2024 at 20:52
== END ==
LOC: CT 15:07
PROVIDERS: PCP Family Medicine; Referring Provider Family Medicine; Visit Provider Family Medicine
DX: Z87.891 Personal history of nicotine dependence (principal); J43.9 Emphysema, unspecified; R91.1 Solitary pulmonary nodule; J98.4 Other disorders of lung; K44.9 Diaphragmatic hernia without obstruction or gangrene; K76.89 Other specified diseases of liver
CPT/HCPCS: 71271

== ENCOUNTER 2025-03-02 11:39 | Emergency (ER) | payer MEDICARE, SELFPAY ==
--- NOTE | 2025-03-02 11:45 | DI.RAD.S_ITS ---
PROCEDURE: XR CHEST 1V INDICATIONS: Chest Pain TECHNIQUE: One view of the chest was acquired. COMPARISON: [facility], CR, XR CHEST 2V, 09/15/2022, 5:31. FINDINGS: Mild calcifications of the aortic arch. Mild bilateral apical pleural thickening/scarring. Mild degenerative changes of the thoracic spine and shoulders. Cardiopericardial silhouette and pulmonary vasculature within normal limits. No pneumothorax, no pleural effusion, no focal consolidation. IMPRESSION: No acute cardiopulmonary abnormality. If symptoms persist or worsen, or there is high clinical suspicion of thoracic abnormality, CT could be performed. Dictated by: Holden Garcia M.D. on 03/02/2025 at 12:21 Approved by: Holden Garcia M.D. on 03/02/2025 at 12:26
[2025-03-02 11:46] VITALS: PULSE 89; O2SAT 97
[2025-03-02 11:47] VITALS: BP 208/110; PULSE 112; O2SAT 97
[2025-03-02 11:51] VITALS: BP 208/110; PULSE 149; RESP 18; TEMP 36.2; O2SAT 97; BMI 22.8
--- NOTE | 2025-03-02 11:53 | EKG_ITS ---
[address] [address] [address], [place] [address] Test Date: 2025-03-02 Pat Name: Srinivas Enriquez Department: Room: Gender: Male Telephone Exchange Operator: BATSHEVA : 1945 Requested By: Order Number: [id number] Reading MD: Navid Walters MD Measurements Intervals [place] Rate: 85 P: 87 NE: 152 QRS: 47 QRSD: 88 T: 75 QT: 342 QTc: 406 Interpretive Statements Normal sinus rhythm Electronically Signed On 03-02-2025 12:01:17 PDT by Navid Walters MD
[2025-03-02 12:00] VITALS: BP 187/91; PULSE 89; RESP 20; O2SAT 97
[2025-03-02 12:12] LABS: Add Manual Diff / Slide Review NO; Basophils Absolute Auto 0 /uL (0-100); Basophils Percent Auto 0.4 % (0-2); Eosinophils Absolute Auto 0 /uL (0-450); Eosinophils Percent Auto 0.3 % (2-4); Hematocrit 46.1 % (41-53); Hemoglobin 15.7 g/dL (13.5-17.5); Lymphocytes Absolute Auto 800 /uL (1100-4500); Lymphocytes Percent Auto 10.7 % (25-40); Mean Corpuscular Hemoglobin 32.1 PG (26-34); Mean Corpuscular Volume 94.2 fL (80-100); Monocytes Absolute Auto 200 /uL (0-900); Monocytes Percent Auto 2.4 % (3-14); Neutrophils Absolute Auto 6500 /uL (1500-7000); Neutrophils Percent Auto 86.2 % (50-75); Platelet Count 341 X10^3/uL (150-400); Red Blood Cell Count 4.89 X10^6/uL (4.5-5.9); Red Cell Distribution Width 13.1 % (11.6-14.8); White Blood Cell Count 7.5 X10^3/uL (4.5-11.0)
[2025-03-02] MEDS: ASPIRIN 81 MG CHEW TAB 324 MG PO (12:15)
[2025-03-02 12:21] LABS: Prothrombin Time 11.1 SECONDS (9.4-12.5)
[2025-03-02 12:23] LABS: PTT Partial Thromboplastin Tim 33 SECONDS (25.1-36.5)
[2025-03-02 12:25] LABS: Alanine Aminotransferase 30 IU/L (<50); Albumin 4.6 g/dL (3.5-5.0); Albumin Globulin Ratio 1.4 (1.0-2.8); Alkaline Phosphatase 71 U/L (38-126); Aspartate Aminotransferase 31 IU/L (17-59); BUN Creatinine Ratio 21.3 (6-22); Bilirubin Total 0.7 mg/dL (0.2-1.3); Blood Urea Nitrogen 19 mg/dL (9-20); Calcium 10.5 mg/dL (8.4-10.2); Carbon Dioxide 24 mmol/L (22-32); Chloride 105 mmol/L (98-107); Creatine Kinase 64 U/L (55-170); Estimated Glomerular Filt Rate > 60 mL/min (>60); Globulin 3.2 g/dL (1.7-4.1); Glucose 110 mg/dL (70-99); HEMOLYSIS < 15 (0-50); Lactate (Lactic Acid) 1.4 mmol/L (0.7-2.1); Lipase 78 U/L (23-300); Magnesium 2.1 mg/dL (1.6-2.3); Potassium 4.2 mmol/L (3.4-5.1); Sodium 138 mmol/L (137-145); Total Protein 7.8 g/dL (6.3-8.2)
[2025-03-02 12:30] VITALS: BP 157/82; PULSE 67; RESP 18; O2SAT 97
[2025-03-02 12:37] LABS: NT-proBNP (BNP-Adult 18+) 297 pg/mL (<450); Troponin I < 0.012 ng/mL (0.01-0.034)
--- NOTE | 2025-03-02 12:47 | ED.ARRPALP ---
HPI - Arrhythmia/Palpitations General Chief Complaint: Arrhythmia/Palpitations Stated Complaint: Sent from Cardio possible in AFIB Time Seen by Provider: 03/02/25 11:57 History of Present Illness HPI narrative: Patient is a 79-year-old male history of COPD presenting today with new onset atrial fibrillation. He was at cardio rehab exercising when he noticed his heart rate was quite irregular. He reports normally for him his heart rate while exercising his in the 90s he can not get his heart rate elevated. However is quite irregular they did a monitoring strips which did show atrial fibrillation. By the time he got over here he converted into sinus rhythm. He reports feeling some chest heaviness. No significant pain or shortness of breath. He was currently finishing got prednisone for a recent COPD exacerbation. No fever or chills. He was familiar with atrial fibrillation cut his has not. Related Data Previous Rx's Medication Instructions Recorded budesonide 0.25 mg/2 mL suspension 0.6 mg (4.8 mL) irrigation Q DAY 02/14/24 for nebulization #180 mL albuterol sulfate 90 mcg/actuation 2 puff inhalation QID PRN chronic 11/02/24 aerosol inhaler (Ventolin HFA) bronchitis #18 grams alprazolam 0.25 mg tablet 0.25 - 0.5 mg (1 - 2 x 0.25 mg) PO 01/11/25 DAILY PRN anxiety or insomnia #30 tabs fluticasone 100 mcg-salmeterol 50 1 inh inhalation BID #60 ea 01/16/25 mcg/dose blistr powdr for inhalation montelukast 10 mg tablet 10 mg PO BEDTIME #30 tabs 01/16/25 prednisone 20 mg tablet 40 mg (2 x 20 mg) PO DAILY #14 tabs 01/16/25 apixaban 5 mg tablet (Eliquis) 5 mg PO BID #60 tabs 03/02/25 Allergies Allergy/AdvReac Type Severity Reaction Status Date / Time Penicillins Allergy Severe HIVES, Verified 01/11/25 15:46 TROUBLE BREATHING budesonide [From Symbicort] AdvReac Mild Verified 01/11/25 15:46 formoterol [From Symbicort] AdvReac Mild Verified 01/11/25 15:46 Patient History Medical History (Updated 03/02/25 @ 13:[address] DO) Centrilobular emphysema Mixed hyperlipidemia (10/11/15) Near syncope Unintended weight loss Borderline hyperlipidemia History of colon polyps Medicare annual wellness visit, subsequent Encounter for well adult exam without abnormal findings Chronic sinusitis Preventative health care Insomnia Chronic bronchitis (~1976) Rubella Mumps Chicken pox Elevated PSA (~1994) Dermatitis Colon polyps Hyperlipidemia History of nasal polyp (08/17/17) Moderate persistent asthma without complication (10/11/15) Benign non-nodular prostatic hyperplasia with lower urinary tract symptoms (10/11/15) Surgical History Anesthesia S/P TURP (~2015) History of sinus surgery (~2007) History of knee surgery (~2007) History of appendectomy (~1965) History of tonsillectomy (~1951) Hx of inguinal hernia surgery (~03/31/12) Family History Father No problems noted. Mother Heart disease Brother Heart disease Stroke Sister Cancer Mental health problem Grandmother No problems noted. Grandfather No problems noted. Grandmother No problems noted. 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 special surinder needs: No travel history: over 6 months ago sexual history: Yes leisure activities: sports, exercise, music, games and reading seatbelt use: always helmet use: No water heater temp set < 120 deg: Yes working smoke detector in home: Yes fire extinguisher in home: Yes carbon monox detector in home: Yes firearms in home: No do you feel safe at home: Yes Tobacco: How many years used: 37 substance use type: inhalants and prescription drug during the past year weight has: decreased > 10 lbs well-balanced diet: daily or most days daily servings fruits/ve-4 caffeine: Yes eating out: 1-3 times/week Type(s) of exercise: walking, irregular exercise and sedentary lifestyle frequency: 3-4 times per week duration: 45-60 minutes/day Exam Initial Vital Signs Initial Vital Signs: Vital Signs Pulse Rate 89 03/02/25 11:46 Pulse Oximetry 97 03/02/25 11:46 GENERAL: Alert pleasant 71-year-old male and in no acute distress. HEENT: Head atraumatic,EOMI, pupils reactive, face symmetric, moist mucous membranes CARDIOVASCULAR: Regular rate and rhythm without murmurs, rubs or gallops. RESPIRATORY: Breath sounds equal bilaterally, no wheezes rales or rhonchi. ABDOMEN: Soft, nontender. Normoactive bowel sounds all 4 quadrants. No guarding or rebound. EXTREMITIES: Normal range of motion, no clubbing or edema. Neurovascularly intact NEUROLOGICAL: Alert and oriented x4.Normal gait and speech. Cranial nerves II through XII grossly intact. SKIN: Warm, dry, no laceration, no petechiae, no rashes or lesions. Course Orders Ordered: ED Orders 03/02/25 11:45 XR chest 1V Stat EKG-12 Lead Stat RT Consult Eval and Treat NOW 03/02/25 11:50 Complete Blood Count AUTO DIFF Stat Comprehensive Metabolic Panel Stat Lactate (Lactic Acid) Stat Lipase Stat Magnesium Stat NT-proBNP (BNP-Adult 18+) Stat PTT Partial Thromboplastin [place] Stat Prothrombin Time INR Stat Troponin & CK Cardiac Panel Stat Discontinued Medications Apixaban (Apixaban 5 Mg Tablet) 5 mg PO NOW ONE Stop: 03/02/25 13:07 Last Admin: 03/02/25 13:19 Dose: 5 mg Documented By: JULIETH Aspirin (Aspirin 81 Mg Chew Tab) 324 mg PO NOW ONE Stop: 03/02/25 11:46 Last Admin: 03/02/25 12:15 Dose: 324 mg Documented By: VERONA Vital Signs Vital signs: Vital Signs - 8 hr 03/02/25 11:46 03/02/25 11:47 03/02/25 11:47 Temperature Pulse Rate 89 112 H Respiratory Rate Blood Pressure 208/110 H Pulse Oximetry 97 97 Oxygen Delivery Method 03/02/25 11:51 03/02/25 12:00 03/02/25 12:00 Temperature 97.2 F L Pulse Rate 149 H 89 Respiratory Rate 18 20 Blood Pressure 208/110 H 187/91 H Pulse Oximetry 97 97 Oxygen Delivery Method Room Air Room Air 03/02/25 12:30 03/02/25 12:30 03/02/25 13:00 Temperature Pulse Rate 67 62 Respiratory Rate 18 24 Blood Pressure 157/82 H Pulse Oximetry 97 97 Oxygen Delivery Method 03/02/25 13:00 Temperature Pulse Rate Respiratory Rate Blood Pressure 171/83 H Pulse Oximetry Oxygen Delivery Method MDM - Arrhythmia/Palpitations Lab Data 03/02/25 11:50 03/02/25 11:50 Labs: Lab Results 03/02/25 Range/Units 11:50 WBC 7.5 (4.5-11.0) X10^3/uL RBC 4.89 (4.5-5.9) X10^6/uL Hgb 15.7 (13.5-17.5) g/dL Hct 46.1 (41-53) % MCV 94.2 (80-100) fL MCH 32.1 (26-34) PG MCHC 34.0 (30-36) % RDW 13.1 (11.6-14.8) % Plt Count 341 (150-400) X10^3/uL Neut % (Auto) 86.2 H (50-75) % Lymph % (Auto) 10.7 L (25-40) % [place] % (Auto) 2.4 L (3-14) % Eos % (Auto) 0.3 L (2-4) % Baso % (Auto) 0.4 (0-2) % Neut # (Auto) 6500 (7630-8442) /uL Lymph # (Auto) 800 L (6402-2463) /uL [place] # (Auto) 200 (0-900) /uL Eos # (Auto) 0 (0-450) /uL Baso # (Auto) 0 (0-100) /uL PT 11.1 (9.4-12.5) SECONDS INR 1.0 (0.9-1.3) APTT 33 (25.1-36.5) SECONDS Sodium 138 (137-145) mmol/L Potassium 4.2 (3.4-5.1) mmol/L Chloride 105 (98-107) mmol/L Carbon Dioxide 24 (22-32) mmol/L BUN 19 (9-20) mg/dL Creatinine 0.89 (0.66-1.25) mg/dL Estimated GFR > 60 (>60) mL/min BUN/Creatinine Ratio 21.3 (6-22) Glucose 110 H (70-99) mg/dL Lactate 1.4 (0.7-2.1) mmol/L Calcium 10.5 H (8.4-10.2) mg/dL Magnesium 2.1 (1.6-2.3) mg/dL Total Bilirubin 0.7 (0.2-1.3) mg/dL AST 31 (17-59) IU/L ALT 30 (<50) IU/L Alkaline Phosphatase 71 (38-126) U/L Total Creatine Kinase 64 (55-170) U/L Troponin I < 0.012 (0.01-0.034) ng/mL NT-Pro-B Natriuret Pep 297 (<450) pg/mL Total Protein 7.8 (6.3-8.2) g/dL Albumin 4.6 (3.5-5.0) g/dL Globulin 3.2 (1.7-4.1) g/dL Albumin/Globulin Ratio 1.4 (1.0-2.8) Lipase 78 (23-300) U/L Imaging Data Chest x-ray: Radiologist's Impresson: PROCEDURE: XR CHEST 1V INDICATIONS: Chest Pain TECHNIQUE: One view of the chest was acquired. COMPARISON: [facility], , XR CHEST 2V, 09/15/2022, 5:31. FINDINGS: Mild calcifications of the aortic arch. Mild bilateral apical pleural thickening/scarring. Mild degenerative changes of the thoracic spine and shoulders. Cardiopericardial silhouette and pulmonary vasculature within normal limits. No pneumothorax, no pleural effusion, no focal consolidation. IMPRESSION: No acute cardiopulmonary abnormality. If symptoms persist or worsen, or there is high clinical suspicion of thoracic abnormality, CT could be performed. Dictated by: Holden Garcia M.D. on 03/02/2025 at 12:21 Approved by: Holden Garcia M.D. on 03/02/2025 at 12:26 ECG Data Attestation: I personally reviewed and interpreted this ECG as follows: Prior ECG tracings: available for review Interpretation: Normal sinus rhythm rate 85 CO interval 152 QRS [address] changes no T-wave inversions MDM Narrative Medical decision making narrative: Patient is a 71 male presenting today with onset atrial fibrillation. He does have a history of COPD. He actually self converted by the time he got to the emergency department but does have monitoring strips from cardio rehab that clearly show AFib. Blood work has been reviewed He has no anemia no leukocytosis No electrolyte abnormality no ALYSSIA Lactate 1.4 Troponin negative EKGs reveals a normal sinus rhythm Chest x-ray no acute cardiopulmonary process Patient now completely asymptomatic self converted from atrial fibrillation. He was a candidate for anticoagulation. 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 Patient has no contraindication for anticoagulation. FLOR?DS?-VASc Score for Atrial Fibrillation Stroke Risk from [facility] [email or web address] on 03/02/2025 All calculations should be rechecked by clinician prior to use RESULT SUMMARY: 2 points Stroke risk was 2.2% per year in >90,000 patients (the [place] Atrial Fibrillation Cohort Study) and 2.9% risk of stroke/TIA/systemic embolism. INPUTS: Age ?> 2 = >=5 Sex ?> 0 = Male CHF history ?> 0 = No Hypertension history ?> 0 = No Stroke/TIA/thromboembolism history ?> 0 = No Vascular disease history (prior DE, peripheral artery disease, or aortic plaque) ?> 0 = No Diabetes history ?> 0 = No HAS-BLED Score for Major Bleeding Risk from [facility] [email or web address] on 03/02/2025 All calculations should be rechecked by clinician prior to use RESULT SUMMARY: 0 points Risk was 0.9% in one validation study (Maty 2010) and 1.13 bleeds per 100 patient-years in another validation study (Pisroseanne 2010). Anticoagulation should be considered: Patient has a relatively low risk for major bleeding (~1/100 patient-years). INPUTS: Hypertension ?> 0 = No Renal disease ?> 0 = No Liver disease ?> 0 = No Stroke history ?> 0 = No Prior major bleeding or predisposition to bleeding ?> 0 = No Labile INR ?> 0 = No Age >65 ?> 0 = No Medication usage predisposing to bleeding ?> 0 = No Alcohol use ?> 0 = No Discharge Plan Departure Patient Disposition: Home Clinical Impression: Atrial fibrillation, new onset Instructions: DI for Atrial Fibrillation Activity Restrictions/Additional Instructions: *You have been diagnosed with new onset atrial fibrillation *What to do: At this time please call your primary care provider you will require further testing such as an echocardiogram *Continue to take medications as directed Eliquis 5 mg twice a day until told otherwise. There is risk of bleeding, do not combine aspirin Advil Motrin Aleve naproxen *Follow up with your primary care provider in 2-3 days or call [phone] *Return to ER if you should have increasing chest pain shortness of breath irregular heart rate fallen hitting head bloody stool or any new, worsening or concerning symptoms Prescriptions: New Eliquis 5 mg tablet 5 mg PO BID Qty: 60 0RF No Action budesonide 0.25 mg/2 mL suspension for nebulization 0.6 mg IRR Q DAY Qty: 180 2RF Rx Instructions: okay to dispense the powdered compound version Ventolin HFA 90 mcg/actuation HFA aerosol inhaler 2 puff INHALATION QID PRN (Reason: chronic bronchitis) Qty: 18 5RF prednisone 20 mg tablet 40 mg PO DAILY Qty: 14 2RF montelukast 10 mg tablet 10 mg PO BEDTIME Qty: 30 1RF fluticasone propion-salmeterol 100-50 mcg/dose blister with device 1 inh inhalation BID Qty: 60 2RF alprazolam 0.25 mg tablet 0.25 - 0.5 mg PO DAILY PRN (Reason: anxiety or insomnia) Qty: 30 2RF Referrals: Smith Chapman DO [Primary Care Provider] - Stand Alone Forms: Patient Portal/API/Survey
[2025-03-02 13:00] VITALS: BP 171/83; PULSE 62; RESP 24; O2SAT 97
[2025-03-02] MEDS: APIXABAN 5 MG TABLET PO (13:19)
== END 2025-03-02 13:30 | disposition home or self-care (01) ==
PROVIDERS: Emergency Provider Emergency Medicine; PCP Family Medicine
DX: I48.91 Unspecified atrial fibrillation (principal); J44.9 Chronic obstructive pulmonary disease, unspecified; Z87.891 Personal history of nicotine dependence
CPT/HCPCS: 36415; 71045; 80053; 82550; 83605; 83690; 83735; 83880; 84484; 85025; 85610; 85730; 93005; 93010; 99284

== ENCOUNTER → 2025-09-10 11:37 | Outpatient (CLI) | payer MEDICARE, SELFPAY ==
--- NOTE | 2025-09-10 11:38 | DI.RAD.S_ITS ---
PROCEDURE: XR DEXA AXIAL SKELETON INDICATIONS: screening COMPARISON: None. FINDINGS: Lumbar Spine: Bone mineral density 0.93 g/cm2, T score -1,. Left Femoral Neck: Bone mineral density 0.58 g/cm2, T score -2.5. Left Hip: Bone mineral density 0.80 g/cm2, T score -1.2 Fracture Risk Calculation (when applicable): Not applicable due to osteoporosis (T score greater or equal to -1.0 to: NORMAL) (T score from -1.1 to -2.4: OSTEOPENIA) (T score less than or equal to -2.5: OSTEOPOROSIS) IMPRESSION: Osteoporosis Follow-up guidelines as follows: Osteoporosis: Consider a repeat DEXA and Vertebral Fracture Assessment (VFA) exam in 2 years or sooner if medically necessary, to reassess this patient's status. Osteopenia: Consider a repeat DEXA in 2-3 years to reassess this patient's status, or if there is a new clinical indication. Normal: Consider a repeat DEXA in 5 years or sooner, or if there is a new clinical indication. All treatment decisions require clinical judgment and consideration of individual patient factors, including patient preferences, comorbidities, previous drug use, risk factors not captured in the FRAX model (e.g., frailty, falls, vitamin D deficiency, increased bone turnover, interval significant decline in bone density ) and possible under- or over-estimation of fracture risk by FRAX. In addition, the NOF Guide recommends that FDA-approved medical therapies be considered in postmenopausal women and men age >= 50 years with a: * Hip or vertebral (clinical or morphometric) fracture * T-score of <=-2.5 at the spine or hip * Ten-year fracture probability by FRAX of >= 3% for hip fracture or >=20% for major osteoporotic fracture. Dictated by: Juan Diego Manuel M.D. on 09/10/2025 at 15:58 Approved by: Juan Diego Manuel M.D. on 09/10/2025 at 15:59
== END ==
LOC: RAD 11:37
PROVIDERS: PCP Family Medicine; Referring Provider Family Medicine; Visit Provider Family Medicine
DX: M85.89 Other specified disorders of bone density and structure, multiple sites (principal); M81.0 Age-related osteoporosis without current pathological fracture
CPT/HCPCS: 77080